=== PATIENT | female | born 1955 | race Caucasian/White ===

== ENCOUNTER → 2023-11-04 08:23 | Outpatient (REF) | payer OTHER, SELFPAY | LOC: WDC 08:23 | PROVIDERS: ATTENDING PHYSICIAN Physician Assistant Medical | DX: Z12.31 Encounter for screening mammogram for malignant neoplasm of breast (principal) | CPT/HCPCS: 77063; 77067 ==

== ENCOUNTER → 2023-11-24 09:13 | Outpatient (REF) | payer OTHER, SELFPAY | LOC: RAD 09:13 | PROVIDERS: ATTENDING PHYSICIAN Physician Assistant Medical | DX: M85.80 Other specified disorders of bone density and structure, unspecified site (principal) | CPT/HCPCS: 77080 ==

== ENCOUNTER → 2024-11-08 08:52 | Outpatient (REF) | payer OTHER, SELFPAY | LOC: WDC 08:52 | PROVIDERS: ATTENDING PHYSICIAN Physician Assistant Medical | DX: Z12.31 Encounter for screening mammogram for malignant neoplasm of breast (principal) | CPT/HCPCS: 77063; 77067 ==